=== PATIENT | male | born 1975 | race Caucasian/White ===

== ENCOUNTER 2023-01-13 09:21 | Day surgery (SDC) | payer OTHER, SELFPAY ==
[2023-01-05 09:26] VITALS: BMI 44.3
[2023-01-13 09:36] VITALS: BP 132/91; PULSE 81; RESP 19; TEMP 36.2; O2SAT 99; BMI 44.3
[2023-01-13] MEDS: LACTATED RINGERS 1,000 ML 42 ML IV (09:49)
--- NOTE | 2023-01-13 10:54 | PM.HP.1 ---
History of Present Illness History of Present Illness Date Patient Seen: 01/13/23 Time Patient Seen: 10:55 Chief complaint: Left Arthroscopic Partial Medial Meniscectomy Narrative: Patient is a 47-year-old male BMI 44 presents with left knee pain medial sided. He endorses catching and locking. He has a history of greater than 20 years of knee pain but it was worsening over the last 3 months after he tripped and fell and felt a sudden sharp pain. He endorses soreness, aching swelling and clicking. Twenty years ago he had a partial medial meniscectomy from a football injury. But now he has a new medial pop and sharp pain that is worse on stairs. Denies instability. Endorses catching. He had an MRI that demonstrated a loose body as well as medial femoral condyle and medial tibial bone contusions minimal degenerative changes and questionable medial meniscal tear with a moderate effusion. Loose bodies about 1 cm. There was also a grade 1 MCL sprain and partial ACL sprain. He is failed conservative treatment. He has been indicated for arthroscopic debridement partial meniscectomy and removal of the large loose body. The risks and benefits of the procedure have been discussed with the patient and given the opportunity to ask questions. The risks of surgery include but are not limited to infection, malunion, nonunion, persistence of pain, damage to nerves and blood vessels, posttraumatic arthritis, DVT, PE, coardiopulmonary complications and . The patient expressed a thorough understanding of the risks and benefits of surgery and has elected to proceed. Consent was signed. [facility] Medical History HLD (hyperlipidemia) HTN (hypertension) PSC (primary sclerosing cholangitis) Surgical History Hx of colonoscopy (06/29/12) Hx of knee surgery Social History household members: spouse Smoking Status: Never smoker alcohol intake: current Meds Home Medications and Allergies Home Medications Medication Instructions Recorded Confirmed Type hydrocodone 5 mg-acetaminophen 325 1 tab PO Q4H PRN pain #20 tabs 01/13/23 Rx mg tablet lisinopril 20 1 tab PO ONCE PM 01/13/23 01/13/23 History mg-hydrochlorothiazide 12.5 mg tablet metformin 500 mg tablet,extended 2 mg PO 01/13/23 History release 24 hr ondansetron 4 mg disintegrating 4 mg PO Q8H PRN nausea and 01/13/23 Rx tablet vomiting #5 tabs Allergies Allergy/AdvReac Type Severity Reaction Status Date / Time Penicillins [PENICILLINS] Allergy Mild Verified 01/13/23 09:48 Review of Systems Review of Systems ROS: Yes All systems reviewed with the patient and are negative except as otherwise documented Exam Vital Signs (past 8 hours): - 01/13/23 09:36 Temperature 97.2 F L Pulse Rate 81 Respiratory Rate 19 Blood Pressure 132/91 H Pulse Oximetry 99 Oxygen Delivery Method Room Air Oxygen Delivery Method Room Air Narrative Exam Narrative: General exam is alert oriented male in no acute distress HEENT exam normocephalic atraumatic Respiratory unlabored on room air lungs clear to auscultation bilaterally Heart regular rate and rhythm Abdomen obese Left lower extremity demonstrates no erythema. Range of motion is 0-130. Grossly stable ligamentous examination. Predominantly medial joint line tenderness to palpation. Mild effusion. No atrophy. Brisk capillary refill. Medial joint line pain with Archie's. No pain with patellar mobilization. Demonstrates 5/5 dorsiflexion plantar flexion quadriceps and hamstrings Assessment & Plan Assessment and plan (1) Loose body in knee, left knee: Status: Acute Plan Patient has a loose body and left medial meniscus tear. He is failed conservative treatment. He has been indicated for surgical debridement and loose body removal. This was done arthroscopically. The risks and benefits of the procedure were discussed with the patient in detail. He is elected to proceed. Time Spent With Patient Time with patient: less than 30 minutes Quality VTE Deep Vein Thrombosis/Pulmonary Embolism Present on Admission: No
[2023-01-13] MEDS: CLINDAMYCIN 900 MG in SODIUM CHLORIDE 0.9% 100 ML 106 MG IV (11:10)
--- NOTE | 2023-01-13 11:44 | SUR.OPER ---
Supine on padded OR bed, head on pillow, arms secured on padded arm boards at <90 degrees abduction, legs uncrossed, safety belt at abdomen, tape over blanket over lower right leg. Lateral thigh positioner at tourniquet on left side
[2023-01-13] MEDS: EPINEPHrine 1 MG/ML IRR (11:53)
[2023-01-13] MEDS: BUPIVACAINE 0.25% W/ EPI 30 ML VIAL INJ (11:55)
--- NOTE | 2023-01-13 12:32 | PM.OP.1 ---
Operative Date/Time/Diagnoses Date of procedure: 01/13/23 Time of procedure: 12:32 Pre-op diagnosis: Left knee medial meniscus tear, internal derangement, left knee arthritis, osteochondral lesion, loose body Post-op diagnosis: same Procedure & Clinicians Procedure: Left knee arthroscopic debridement partial medial meniscectomy Left knee chondroplasty medial and anterior compartments Same procedure as scheduled: Yes Indications: Patient is a 47-year-old male with worsening left knee pain over the last several months mechanical symptoms. Has a remote history of a partial medial meniscectomy 20 years ago from a football injury. Has had some pain for years but acute worsening of pain in the last 3-4 months. MRI demonstrated possible new interval medial meniscus tear and loose body. Minimal Kellgren Mikel grade 2 narrowing medial compartment on plain x-rays. He is failed conservative treatment. He has been indicated for arthroscopic debridement possible partial medial meniscectomy, chondroplasty as indicated possible removal of loose body. The risks and benefits of the procedure have been discussed with the patient and given the opportunity to ask questions. The risks of surgery include but are not limited to infection, progressive arthritis, persistence of pain, damage to nerves and blood vessels, need for additional procedures,, DVT, PE, cardiopulmonary complications and . The patient expressed a thorough understanding of the risks and benefits of surgery and has elected to proceed. Consent was signed. Surgeon: Ade Treviño Click Yes if Unassisted: Yes Anesthesia Type: General and Local Operative Notes Findings: Suprapatellar pouch: Mild synovitis Patellofemoral compartment grade 3 and grade 4 cartilage loss patella grade 3 changes trochlea. Chondroplasty performed of patella and trochlea Lateral gutter normal plica no loose bodies Medial gutter synovitis no loose bodies Medial compartment grade 4 cartilage loss medial femoral condyle grade 3 cartilage loss tibial plateau degenerative meniscal tearing debrided back to stable border. Chondroplasty performed of medial femoral condyle Lateral compartment grade 2 2 cartilage changes. Lateral meniscus intact. Notch: ACL intact partially visualized PCL Closure Type: primary Specimen(s): none sent Estimated Blood Loss (mL): 5 Blood products transfused: none Tourniquet time (min): 39 Procedure in detail: Patient was seen in the preoperative area the site of surgery was marked informed consent confirmed. The patient was brought back to the operating room by the anesthesia team positioned supine on the operative table. General anesthetic was administered. The left lower extremity was prepped and draped in standard sterile fashion. A formal time-out procedure was performed confirming the patient's side and site of surgery administration of appropriate preoperative antibiotics. All were in agreement Esmarch was used for exsanguination tourniquet elevated on the thigh to 250 mmHg. Standard anterolateral portal was established and the diagnostic arthroscopy was carried out in the usual fashion. The findings were given above. Then shaver was used to perform a chondroplasty in the anterior and medial compartments. Shaver was also used to debride the medial meniscus tear back to a stable border. Thorough arthroscopy was completed through all compartments. No specific loose body was found. There was substantial cartilage involvement of the anterior and medial compartments along the medial femoral condyle and patella. Once we were satisfied with the chondroplasty and partial medial meniscectomy the instruments were removed fluid was removed from the knee and then the portals were closed. The knee was injected with 15 cc of 0.25% Marcaine with epinephrine for local anesthetic both of the portal sites and intra-articularly. Tourniquet was released dressing was placed drapes removed the patient was awoken from anesthesia and taken to the recovery room in good condition. There no immediate complications from this procedure. All counts were correct. Complications: none Post-operative Condition: stable Disposition: PACU Plan for aftercare: Weightbear as tolerated. Range of motion as tolerated. Follow up in 2 weeks for suture removal. May remove the dressing and shower in 3 days. Put Band-Aids over the suture sites. Aspirin for DVT prophylaxis. Prescription for De Beque sent for postoperative pain control.
[2023-01-13 12:37] VITALS: BP 118/83; BP 125/87; PULSE 86; PULSE 88; RESP 12; TEMP 36.3; O2SAT 90; O2SAT 96
[2023-01-13 12:42] VITALS: BP 121/84; PULSE 92; RESP 18; O2SAT 95
[2023-01-13 12:50] VITALS: BP 119/72; PULSE 91; RESP 15; TEMP 36.2; O2SAT 95
== END 2023-01-13 13:16 | disposition home or self-care (01) ==
PROVIDERS: PCP Family Medicine; Referring Provider Orthopaedic Surgery Foot and Ankle Surgery; Visit Provider Orthopaedic Surgery Foot and Ankle Surgery
PROC: (CPT 29870; principal; 2023-01-13 10:45)
DX: M23.92 Unspecified internal derangement of left knee (principal); S83.242A Other tear of medial meniscus, current injury, left knee, initial encounter; M17.12 Unilateral primary osteoarthritis, left knee
CPT/HCPCS: 29881; J0171; J1100; J2250; J2405; J2704; J3010; S0077

== ENCOUNTER 2024-12-12 21:21 | Emergency (ER) | payer OTHER, SELFPAY ==
[2024-12-12 21:39] VITALS: BP 147/74; PULSE 88; RESP 20; TEMP 36.6; O2SAT 95; BMI 44.1
--- NOTE | 2024-12-12 21:47 | DI.CT.S_ITS ---
PROCEDURE: CT ABDOMEN PELVIS W CON INDICATIONS: Upper abdominal pain with jaundice TECHNIQUE: After the administration of intravenous contrast, axial sections acquired from the lung bases to the pubic symphysis. Coronal and sagittal reformats were performed. For radiation dose reduction, the following was used: automated exposure control, adjustment of mA and/or kV according to patient size. COMPARISON: None. FINDINGS: Image quality: Diagnostic. Lower Chest: No significant findings. ABDOMEN: Liver: Punctate hypodense focus in the left liver, (2/31). Difficult to further characterize given small size. Hepatic steatosis. Gallbladder: Prominent size. No calcified stones identified. Prominent lymph node anterior to the gallbladder measuring 0.7 cm, (2/60). No gallbladder wall thickening is appreciated. No pericholecystic fluid. Biliary ducts: No biliary dilation. Pancreas: No ductal dilation. Spleen: Size is within normal limits. Adrenal Glands: No adrenal nodules. Kidneys and Ureters: No hydronephrosis. No solid mass. No complex renal cystic lesion which requires follow up. Stomach and Bowel: The appendix is dilated with hypodense material. Mild thickening at the appendiceal tip. Punctate calcification near the base. Findings concerning for an appendiceal mucocele. No diverticulitis. No small bowel obstruction. Stomach is within normal limits. Peritoneum: No abnormal intraperitoneal fluid. No free air. Ventral Wall: No significant ventral hernia. Abdominal Nodes: No retroperitoneal or mesenteric adenopathy by size criteria. Vessels: Aorta and inferior vena cava are normal in size. PELVIS: Pelvic Organs: Unremarkable. Bladder: No bladder wall thickening, accounting for underdistention. Pelvic Nodes: No enlarged lymph nodes. Miscellaneous: No inguinal hernias are seen. Bones: No aggressive osseous abnormality. IMPRESSION: 1. Distended gallbladder. No pericholecystic fluid. Gallbladder ultrasound may be helpful for further evaluation if clinically indicated. 2. Hepatic steatosis. 3. 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 -Recommend surgical consultation. Dictated by: Naman Lemons M.D. on 12/13/2024 at 0:24 Approved by: Naman Lemons M.D. on 12/13/2024 at 0:35
[2024-12-12 22:35] LABS: Urine Volume 10mL (spun)
[2024-12-12 22:37] LABS: Bacteria Urine None Seen; Culture Indicated Urine Cult Not Indicated; RBC Urine None Seen (0-5/HPF); Squamous Epithelial Cell Urine None Seen (0-5/HPF); WBC Urine 1-5/HPF (0-5/HPF)
[2024-12-12 22:43] LABS: Add Manual Diff / Slide Review NO; Basophils Absolute Auto 0 /uL (0-100); Basophils Percent Auto 0.3 % (0-2); Eosinophils Absolute Auto 0 /uL (0-450); Eosinophils Percent Auto 0.7 % (2-4); Hematocrit 45.6 % (41-53); Hemoglobin 15.9 g/dL (13.5-17.5); Lymphocytes Absolute Auto 500 /uL (1100-4500); Lymphocytes Percent Auto 7.5 % (25-40); Mean Corpuscular Hemoglobin 29.5 PG (26-34); Mean Corpuscular Volume 84.4 fL (80-100); Monocytes Absolute Auto 400 /uL (0-900); Monocytes Percent Auto 6.6 % (3-14); Neutrophils Absolute Auto 5500 /uL (1500-7000); Neutrophils Percent Auto 84.9 % (50-75); Platelet Count 180 X10^3/uL (150-400); Red Cell Distribution Width 14.6 % (11.6-14.8); White Blood Cell Count 6.4 X10^3/uL (4.5-11.0)
[2024-12-12 22:50] LABS: Alanine Aminotransferase 366 IU/L (<50); Albumin 4.1 g/dL (3.5-5.0); Albumin Globulin Ratio 1.3 (1.0-2.8); Alkaline Phosphatase 120 U/L (38-126); Aspartate Aminotransferase 219 IU/L (17-59); BUN Creatinine Ratio 12.6 (6-22); Bilirubin Total 6.1 mg/dL (0.2-1.3); Blood Urea Nitrogen 12 mg/dL (9-20); Calcium 9.7 mg/dL (8.4-10.2); Carbon Dioxide 22 mmol/L (22-32); Chloride 100 mmol/L (98-107); Estimated Glomerular Filt Rate > 60 mL/min (>60); Globulin 3.2 g/dL (1.7-4.1); Glucose 161 mg/dL (70-99); HEMOLYSIS < 15 (0-50); Lipase 114 U/L (23-300); Potassium 3.6 mmol/L (3.4-5.1); Sodium 134 mmol/L (137-145); Total Protein 7.3 g/dL (6.3-8.2)
[2024-12-13] VITALS (12 sets, daily range): BP systolic 106–140; BP diastolic 58–84; PULSE 78–107; RESP 16–20; TEMP 36.3–37; O2SAT 92–99
[2024-12-13] MEDS: ONDANSETRON 4 MG/2 ML INJ IV (00:19)
--- NOTE | 2024-12-13 01:05 | ED_ITS ---
HPI - Abdominal Pain <Crow Abebe DO - Last Filed: 12/13/24 06:50> General Chief Complaint: Abdominal Pain Stated Complaint: Abdominal Pain, Fever Time Seen by Provider: 12/13/24 00:30 Source: patient Mode of arrival: Ambulatory History of Present Illness HPI narrative: 49-year-old gentleman history of htn, primary sclerosing cholangitis diagnosed over 17 years ago status post ERCP with stone removal presents with abdominal pain nausea vomiting fever 102 started on Monday and fever again Monday and noticed dark urine and discoloration of his skin color today. Last bowel movement was earlier today. Other than what is stated 14 point review of system is negative Related Data Home Medications Medication Instructions Recorded Confirmed lisinopril 20 1 tab PO ONCE PM 01/13/23 01/13/23 mg-hydrochlorothiazide 12.5 mg tablet metformin 500 mg tablet,extended 2 mg PO 01/13/23 release 24 hr Previous Rx's Medication Instructions Recorded hydrocodone 5 mg-acetaminophen 325 1 tab PO Q4H PRN pain #20 tabs 01/13/23 mg tablet ondansetron 4 mg disintegrating 4 mg PO Q8H PRN nausea and 01/13/23 tablet vomiting #5 tabs Allergies Allergy/AdvReac Type Severity Reaction Status Date / Time Penicillins [PENICILLINS] Allergy Mild Verified 01/13/23 09:48 <Vera Land, DO - Last Filed: 12/13/24 18:39> History of Present Illness HPI narrative: 49-year-old gentleman history of htn, primary sclerosing cholangitis diagnosed over 17 years ago status post ERCP with stone removal presents with abdominal pain nausea vomiting fever 102 started on Monday and fever again Monday and noticed dark urine and discoloration of his skin color today. Last bowel movement was earlier today. Other than what is stated 14 point review of system is negative. Review of Systems <Crow Abebe DO - Last Filed: 12/13/24 06:50> Review of Systems ROS Unobtainable: All systems reviewed & are unremarkable except as noted in HPI and below Patient History <Crow Abebe DO - Last Filed: 12/13/24 06:50> Medical History HLD (hyperlipidemia) HTN (hypertension) PSC (primary sclerosing cholangitis) Surgical History Hx of colonoscopy (06/29/12) Hx of knee surgery Social History household members: spouse Smoking Status: Never smoker alcohol intake: current Smoking Status: Never smoker alcohol intake frequency: a few times a week Exam <Crow Abebe, - Last Filed: 12/13/24 06:50> Narrative Exam Narrative: GENERAL: [85] year old patient appears stated age. Well-developed patient, in mild distress. HEAD: Atraumatic. Normocephalic. EYES: Pupils equal round and reactive. Extraocular motions intact. scleral icterus. No injection or drainage. ENT: Nose without bleeding, purulent drainage. Throat without erythema, tonsillar hypertrophy or exudate. Airway patent. NECK: Trachea midline. Non tender CARDIOVASCULAR: Regular rate and rhythm without murmurs, gallops, or rubs. RESPIRATORY: Clear to auscultation. Breath sounds equal bilaterally. No wheezes, rales, or rhonchi. GASTROINTESTINAL: Abdomen soft, RUQ TTP but no r/r/g EXTREMITIES: No edema or joint tenderness. BACK: Nontender without deformity or crepitance. No flank tenderness. NEURO: AOx3. Nonfocal neuro exam axox4 SKIN: Mild Jaundice Initial Vital Signs Initial Vital Signs: Vital Signs Temperature 97.8 F 12/12/24 21:39 Pulse Rate 88 12/12/24 21:39 Respiratory Rate 20 12/12/24 21:39 Blood Pressure 147/74 H 12/12/24 21:39 Pulse Oximetry 95 12/12/24 21:39 Oxygen Delivery Method Room Air 12/12/24 21:39 <Vera Land, DO - Last Filed: 12/13/24 18:39> Initial Vital Signs Initial Vital Signs: Vital Signs Temperature 97.8 F 12/12/24 21:39 Pulse Rate 88 12/12/24 21:39 Respiratory Rate 20 12/12/24 21:39 Blood Pressure 147/74 H 12/12/24 21:39 Pulse Oximetry 95 12/12/24 21:39 Oxygen Delivery Method Room Air 12/12/24 21:39 Course <DO Jacquelyn Mcdermott C.H. Last Filed: 12/13/24 06:50> Orders Ordered: Discontinued Medications Ondansetron HCl (Ondansetron 4 Mg/2 Ml Inj) 4 mg IV NOW PRN PRN Reason: Nausea And Vomiting Last Admin: 12/13/24 00:19 Dose: 4 mg Documented By: NISHANT Ondansetron HCl (Ondansetron 4 Mg Odt) 4 mg PO NOW PRN PRN Reason: Nausea And Vomiting Vital Signs Vital signs: Vital Signs - 8 hr 12/13/24 13:57 12/13/24 16:20 12/13/24 16:20 Temperature 98.6 F 98.6 F Pulse Rate 79 84 87 Respiratory Rate 20 16 16 Blood Pressure 134/79 140/84 140/67 Pulse Oximetry 98 99 98 Oxygen Delivery Method Room Air Room Air Room Air <Vera Land, DO - Last Filed: 12/13/24 18:39> Orders Ordered: Discontinued Medications Ondansetron HCl (Ondansetron 4 Mg/2 Ml Inj) 4 mg IV NOW PRN PRN Reason: Nausea And Vomiting Last Admin: 12/13/24 00:19 Dose: 4 mg Documented By: NISHANT Ondansetron HCl (Ondansetron 4 Mg Odt) 4 mg PO NOW PRN PRN Reason: Nausea And Vomiting Vital Signs Vital signs: Vital Signs - 8 hr 12/13/24 13:57 12/13/24 16:20 12/13/24 16:20 Temperature 98.6 F 98.6 F Pulse Rate 79 84 87 Respiratory Rate 20 16 16 Blood Pressure 134/79 140/84 140/67 Pulse Oximetry 98 99 98 Oxygen Delivery Method Room Air Room Air Room Air MDM - Abdominal Pain <Crow Abebe, DO - Last Filed: 12/13/24 06:50> Lab Data 12/12/24 22:30 12/12/24 22:30 Labs: Lab Results 12/12/24 12/12/24 Range/Units 22:06 22:30 WBC 6.4 (4.5-11.0) X10^3/uL RBC 5.40 (4.5-5.9) X10^6/uL Hgb 15.9 (13.5-17.5) g/dL Hct 45.6 (41-53) % MCV 84.4 (80-100) fL MCH 29.5 (26-34) PG MCHC 35.0 (30-36) % RDW 14.6 (11.6-14.8) % Plt Count 180 (150-400) X10^3/uL Neut % (Auto) 84.9 H (50-75) % Lymph % (Auto) 7.5 L (25-40) % [place] % (Auto) 6.6 (3-14) % Eos % (Auto) 0.7 L (2-4) % Baso % (Auto) 0.3 (0-2) % Neut # (Auto) 5500 (0545-6581) /uL Lymph # (Auto) 500 L (5582-2008) /uL [place] # (Auto) 400 (0-900) /uL Eos # (Auto) 0 (0-450) /uL Baso # (Auto) 0 (0-100) /uL Sodium 134 L (137-145) mmol/L Potassium 3.6 (3.4-5.1) mmol/L Chloride 100 (98-107) mmol/L Carbon Dioxide 22 (22-32) mmol/L BUN 12 (9-20) mg/dL Creatinine 0.95 (0.66-1.25) mg/dL Estimated GFR > 60 (>60) mL/min BUN/Creatinine Ratio 12.6 (6-22) Glucose 161 H (70-99) mg/dL Calcium 9.7 (8.4-10.2) mg/dL Total Bilirubin 6.1 H (0.2-1.3) mg/dL AST 219 H (17-59) IU/L ALT 366 H (<50) IU/L Alkaline Phosphatase 120 (38-126) U/L Total Protein 7.3 (6.3-8.2) g/dL Albumin 4.1 (3.5-5.0) g/dL Globulin 3.2 (1.7-4.1) g/dL Albumin/Globulin Ratio 1.3 (1.0-2.8) Lipase 114 (23-300) U/L Urine RBC None seen (0-5/HPF) Urine WBC 1-5/hpf (0-5/HPF) Ur Squamous Epith Cells None seen (0-5/HPF) Urine Bacteria None seen (None) Ur Culture Indicated? Cult not indicated Vol Urine Centrifuged 10ml (spun) Point of care testing: Urine Dip Bedside Urine Glucose Negative Bedside Urine Bilirubin - Negative Bedside Urine Ketone +++ 80 Urine Specific [place] 1.010 Bedside Urine Occult Blood - Negative Bedside Urine pH 6.0 Bedside Urine Protein +/- 15 Bedside Urine Urobilinogen +/- 1mg Bedside Urine Nitrite - Negative Bedside Urine Leukocytes - Negative Esterase Imaging Data CT scan - abdomen/pelvis: Radiologist's Impression: [address] [address] [address] Scan Report Signed Patient: Praveen Joy MR#: [id number] : 1975 Acct:[id number] Age/Sex: 49 / M Date of Service: 12/12/24 Loc: ED Accession Number: [id number] Procedure: CT abdomen pelvis w con Ordering Provider: Crow Abebe D.O. PROCEDURE: CT ABDOMEN PELVIS W CON INDICATIONS: Upper abdominal pain with jaundice TECHNIQUE: After the administration of intravenous contrast, axial sections acquired from the lung bases to the pubic symphysis. Coronal and sagittal reformats were performed. For radiation dose reduction, the following was used: automated exposure control, adjustment of mA and/or kV according to patient size. COMPARISON: None. FINDINGS: Image quality: Diagnostic. Lower Chest: No significant findings. ABDOMEN: Liver: Punctate hypodense focus in the left liver, (2/31). Difficult to further characterize given small size. Hepatic steatosis. Gallbladder: Prominent size. No calcified stones identified. Prominent lymph node anterior to the gallbladder measuring 0.7 cm, (2/60). No gallbladder wall thickening is appreciated. No pericholecystic fluid. Biliary ducts: No biliary dilation. Pancreas: No ductal dilation. Spleen: Size is within normal limits. Adrenal Glands: No adrenal nodules. Kidneys and Ureters: No hydronephrosis. No solid mass. No complex renal cystic lesion which requires follow up. Stomach and Bowel: The appendix is dilated with hypodense material. Mild thickening at the appendiceal tip. Punctate calcification near the base. Findings concerning for an appendiceal mucocele. No diverticulitis. No small bowel obstruction. Stomach is within normal limits. Peritoneum: No abnormal intraperitoneal fluid. No free air. Ventral Wall: No significant ventral hernia. Abdominal Nodes: No retroperitoneal or mesenteric adenopathy by size criteria. Vessels: Aorta and inferior vena cava are normal in size. PELVIS: Pelvic Organs: Unremarkable. Bladder: No bladder wall thickening, accounting for underdistention. Pelvic Nodes: No enlarged lymph nodes. Miscellaneous: No inguinal hernias are seen. Bones: No aggressive osseous abnormality. IMPRESSION: 1. Distended gallbladder. No pericholecystic fluid. Gallbladder ultrasound may be helpful for further evaluation if clinically indicated. 2. Hepatic steatosis. 3. 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 -Recommend surgical consultation. Dictated by: Naman Lemons M.D. on 12/13/2024 at 0:24 Approved by: Naman Lemons M.D. on 12/13/2024 at 0:35 MDM Narrative Medical decision making narrative: All lab work vital signs imaging studies previous ER visits in all records reviewed. CT scan abdomen and pelvis with IV contrast showed distended gallbladder but no pericholecystic fluid and hepatic steatosis and incidental appendiceal mucocele. Mucinous is adenoma or cyst adenoma carcinoma and recommend surgical consultation. Right upper quadrant ultrasound was performed which showed moderately distended gallbladder without stones or evidence of acute cholecystitis. The structure of the cable armorer operator has labeled common bile duct measures 8 mm which is mildly dilated there is no Doppler imaging to confirm this is not a vascular structure. Planning on obtaining MRCP to rule out choledocholithiasis for further clarification in light of T bili being 6.1 AST 219 ALT 366. <Vera Land, DO - Last Filed: 12/13/24 18:39> Lab Data Labs: Lab Results 12/12/24 12/12/24 Range/Units 22:06 22:30 WBC 6.4 (4.5-11.0) X10^3/uL RBC 5.40 (4.5-5.9) X10^6/uL Hgb 15.9 (13.5-17.5) g/dL Hct 45.6 (41-53) % MCV 84.4 (80-100) fL MCH 29.5 (26-34) PG MCHC 35.0 (30-36) % RDW 14.6 (11.6-14.8) % Plt Count 180 (150-400) X10^3/uL Neut % (Auto) 84.9 H (50-75) % Lymph % (Auto) 7.5 L (25-40) % [place] % (Auto) 6.6 (3-14) % Eos % (Auto) 0.7 L (2-4) % Baso % (Auto) 0.3 (0-2) % Neut # (Auto) 5500 (4435-2743) /uL Lymph # (Auto) 500 L (1013-3543) /uL [place] # (Auto) 400 (0-900) /uL Eos # (Auto) 0 (0-450) /uL Baso # (Auto) 0 (0-100) /uL Sodium 134 L (137-145) mmol/L Potassium 3.6 (3.4-5.1) mmol/L Chloride 100 (98-107) mmol/L Carbon Dioxide 22 (22-32) mmol/L BUN 12 (9-20) mg/dL Creatinine 0.95 (0.66-1.25) mg/dL Estimated GFR > 60 (>60) mL/min BUN/Creatinine Ratio 12.6 (6-22) Glucose 161 H (70-99) mg/dL Calcium 9.7 (8.4-10.2) mg/dL Total Bilirubin 6.1 H (0.2-1.3) mg/dL AST 219 H (17-59) IU/L ALT 366 H (<50) IU/L Alkaline Phosphatase 120 (38-126) U/L Total Protein 7.3 (6.3-8.2) g/dL Albumin 4.1 (3.5-5.0) g/dL Globulin 3.2 (1.7-4.1) g/dL Albumin/Globulin Ratio 1.3 (1.0-2.8) Lipase 114 (23-300) U/L Urine RBC None seen (0-5/HPF) Urine WBC 1-5/hpf (0-5/HPF) Ur Squamous Epith Cells None seen (0-5/HPF) Urine Bacteria None seen (None) Ur Culture Indicated? Cult not indicated Vol Urine Centrifuged 10ml (spun) Point of care testing: Urine Dip Bedside Urine Glucose Negative Bedside Urine Bilirubin - Negative Bedside Urine Ketone +++ 80 Urine Specific [place] 1.010 Bedside Urine Occult Blood - Negative Bedside Urine pH 6.0 Bedside Urine Protein +/- 15 Bedside Urine Urobilinogen +/- 1mg Bedside Urine Nitrite - Negative Bedside Urine Leukocytes - Negative Esterase MDM Narrative Medical decision making narrative: All lab work vital signs imaging studies previous ER visits in all records reviewed. CT scan abdomen and pelvis with IV contrast showed distended gallbladder but no pericholecystic fluid and hepatic steatosis and incidental appendiceal mucocele. Mucinous is adenoma or cyst adenoma carcinoma and recommend surgical consultation. Right upper quadrant ultrasound was performed which showed moderately distended gallbladder without stones or evidence of acute cholecystitis. The structure of the cable armorer operator has labeled common bile duct measures 8 mm which is mildly dilated there is no Doppler imaging to confirm this is not a vascular structure. Planning on obtaining MRCP to rule out choledocholithiasis for further clarification in light of T bili being 6.1 AST 219 ALT 366. 12/13/2024 Dr. Land: Patient signed out to myself by Dr. Abebe. Patient has history reported of primary sclerosing cholangitis has had increased itching and color changes presents with elevation of liver enzymes including bilirubin at 6.1. CT abdomen pelvis shows distended gallbladder no pericholecystic fluid, hepatic steatosis incidental appendiceal mucocele, mucinous cystadenoma or cystadenocarcinoma recommended surgical consultation. Abdominal ultrasound limited, shows moderately distended gallbladder without stones or evidence of acute cholecystitis paced structure has a labeled common bile duct measures 8 mm which is mildly dilated no Doppler imaging to confirm this is not a vascular structure, hepatic steatosis and hepatomegaly. Spoke with the patient was diagnosed with primary sclerosing cholangitis proximally 20 years ago was treated and seen through [facility]. Has a long. With inactivity and improvement of his symptoms so has not been following regularly since. Saw a Dr. Evans [facility]. Distal following regularly with his physician. States symptoms are very similar had fevers in the last 24 hours, itching, jaundice he has been able to tolerate some fluids but has not been able to tolerate any solids having vomiting. Patient has had Zofran. Call out to [facility] @ [phone]. They did call back and ask for specific girth dimensions to see if patient would be candidate at their facility for MRCP. Spoke with GI, Dr. Casey [facility] at 10:27 a.m. he was patient appropriate for transfer might obtain ERCP over MRCP dependent on patient's symptoms upon arrival. He does ask that we keep the patient on clear diet only. Coordinator will page out the hospitalist service. Spoke with the hospitalist at [facility], Dr. Masterson at 10:35am. She accepts for transfer. Did review all findings including patient's change on his imaging with the appendiceal mucocele, concern for malignancy and need for surgical consultation. She expresses understanding. Patient has been hemodynamically stable here in the department. Patient received bed assignment transferred [facility]. Discharge Plan Departure Patient Disposition: [facility] Clinical Impression: Elevated bilirubin, Appendicular mucocele Prescriptions: No Action lisinopril-hydrochlorothiazide 20 MG/12.5 MG tablet 1 tab PO ONCE PM metformin 500 mg tablet extended release 24 hr 2 mg PO hydrocodone-acetaminophen 5-325 mg tablet 1 tab PO Q4H PRN (Reason: pain) Qty: 20 0RF Rx Instructions: postop exempt ondansetron 4 mg tablet,disintegrating 4 mg PO Q8H PRN (Reason: nausea and vomiting) Qty: 5 0RF Referrals: Ade Casanova MD [Primary Care Provider] -
--- NOTE | 2024-12-13 01:20 | DI.US.S_ITS ---
PROCEDURE: US ABDOMEN LIMITED INDICATIONS: CT scan recommended for abnormal gallbladder. TECHNIQUE: Real-time scanning was performed of the abdominal and retroperitoneal organs, with image documentation. COMPARISON: [facility], CT, CT ABDOMEN PELVIS W CON, 12/12/2024, 23:04. FINDINGS: Liver: Increased liver echogenicity with posterior attenuation, most consistent with moderate to severe steatosis. Gallbladder: Gallbladder hydrops. No stones identified. Biliary ducts: Intrahepatic bile ducts are non-dilated. Extrahepatic bile duct caliber measures 8 mm. Normal is 6-7 mm or less in diameter, or 10 mm or less post-cholecystectomy. Miscellaneous: No free abdominal fluid. IMPRESSION: Gallbladder hydrops, without wall thickening or stones. Findings could be related to a fasting state with acute cholecystitis being less likely in the absence of visualized stone. Common bile duct measures 8 millimeters, not confirmed with CT . Marked hepatic steatosis. In the absence of alcohol use or other confounding factors, elevated LFTs may indicate [id number] steatohepatitis (MASH). Agree with preliminary report. Dictated by: Quang Vera M.D. on 12/13/2024 at 8:39 Approved by: Quang Vera M.D. on 12/13/2024 at 8:41
--- NOTE | 2024-12-13 03:47 | PC.NURSE ---
Pt ambulatory to restroom without difficulty or assistance.
--- NOTE | 2024-12-13 09:16 | PC.NURSE ---
Assumed cares at this time. Pt denies pain or nausea at this time. Discussed plan of care, understands.
--- NOTE | 2024-12-13 11:41 | PC.NURSE ---
Pt given jello and broth. Pt tolerated PO intake well. Pain within comfort goal of 4.
--- NOTE | 2024-12-13 14:26 | PC.NURSE ---
Update on transfer to : Ready to set up transport to -->Call transfer center back with transport ETA when we have it Room 1076-Bed 1 Rn-to-RN Report #[phone] (Ext: [phone]), they called this unit Level 10 Accepted @ - Dr. Masterson
--- NOTE | 2024-12-13 16:55 | PC.NURSE ---
Addendum entered by Kamala Moe R.N. 12/13/24 19:36: Report given to NEREYDA Hylton at 0300 Original Note: 12/13/2024 @ 8357 contacted at [phone] and was told to call back, call a second time and spoke with NEREYDA Hylton the charge nurse, informed pt on the way with ETA approx 1.5 hours and offered to give report-- she said she is unaware of pt heading her way, wants to consult staff before taking report to confirm pt's admission locationm and that she will return call to this nurse, gave her our backline number ending in [phone] and informed charge, we are of the understanding pt heading to them at [phone] bed1 and to call back as soon as they want report, she agreed.
== END 2024-12-13 16:22 | disposition short-term general hospital (02) ==
PROVIDERS: Family Medicine; Emergency Provider Emergency Medicine; PCP Family Medicine
DX: E80.6 Other disorders of bilirubin metabolism (principal); K38.8 Other specified diseases of appendix; Z87.19 Personal history of other diseases of the digestive system
CPT/HCPCS: 36415; 74177; 76705; 80053; 81003; 81015; 83690; 85025; 99284; J2405; Q9967